=== PATIENT | male | born 1960 | race Caucasian/White ===

== ENCOUNTER 2025-05-22 09:27 | Day surgery (SDC) | payer MEDICAID, OTHER ==
[~2025-05-22 09:27] MED LIST: Sodium Chloride 0.9% 10 ML Syringe FLUSH PRN; Sodium Chloride 0.9% 10 ML Syringe FLUSH SCH
[2025-05-22] MEDS: Lactated Ringers 1,000 ML IV SCH (09:45)
[2025-05-22] MEDS ORDERED: Lidocaine 1% 4 ML ONE (09:52)
[2025-05-22] MEDS ORDERED: propofoL 500 MG/50 ML 50 ML ONE (09:52)
[2025-05-22] MEDS ORDERED: Propofol 200 MG/20 ML SDV ONE (10:48)
== END 2025-05-22 11:42 | disposition home or self-care (01) ==
LOC: JD.SDS 09:27
PROVIDERS: ATTEND Surgery
DX: Z12.11 Encounter for screening for malignant neoplasm of colon (principal); D12.2 Benign neoplasm of ascending colon; D12.3 Benign neoplasm of transverse colon; R19.5 Other fecal abnormalities; K57.30 Diverticulosis of large intestine without perforation or abscess without bleeding; K64.8 Other hemorrhoids; E66.812 Obesity, class 2; I48.91 Unspecified atrial fibrillation; I11.0 Hypertensive heart disease with heart failure; I50.42 Chronic combined systolic (congestive) and diastolic (congestive) heart failure; Z79.01 Long term (current) use of anticoagulants; Z68.39 Body mass index [BMI] 39.0-39.9, adult; Z87.891 Personal history of nicotine dependence; Z79.899 Other long term (current) drug therapy
CPT/HCPCS: 45380; J2003; J2704; J7120; 00811